=== PATIENT | male | born 1965 | race African-American/Black ===

== ENCOUNTER 2020-06-09 20:59 | Emergency (ER) | payer OTHER ==
[~2020-06-09] VITALS: Ht 180.3 cm; Wt 104.3 kg
== END 2020-06-09 22:22 | disposition home or self-care (01) ==
LOC: ER 20:59
DX: S70.02XA Contusion of left hip, initial encounter (principal); W01.198A Fall on same level from slipping, tripping and stumbling with subsequent striking against other object, initial encounter
CPT/HCPCS: 73502; 99283-25